=== PATIENT | female | born 1970 | race African-American/Black ===

== ENCOUNTER 2016-09-19 12:11 | Emergency (ER) | payer OTHER ==
[2016-09-19] MEDS ORDERED: Ondansetron ODT TAB* 4 MG PO ONE (13:20)
--- NOTE | 2016-09-19 13:21 | ED ---
Headache - HPI Summary HPI Summary: Pt here w/ change in vision while at work this morning. Started as a "fogginess " of both eyes. She stepped away from her computer thinking she may have simply been staring at the screen too long. However as she started walking down the hallway, noticed she had doubled vision and difficulty focusing. She sat down and rested for a few minutes w/o relief. She continues to have double vision and difficulty focusing in both eyes. Eyes are not itching, red, watery or painful. She is not photophobic. She has a CHRISTIAN developing as well. Denies numbness, tingling, weakness, slurred speech or confusion. She has h/o TBI. 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 She has neuropathy for which she takes gabapentin and amitriptyline for years w/o difficulty. Has insomnia as well - no recent exacerbation of stress or worsening of sleep habits. NOTE: pt had a brain MRI in 2014 for headaches which was normal. H/o CHRISTIAN's couple times a week but she just rides them out. No h/o visual change w/ these CHRISTIAN's. - History Of Current Complaint Chief Complaint: EDHeadache Stated Complaint: HEADACHE Time Seen by Provider: 09/19/16 13:01 Hx Obtained From: Patient - Allergies/Home Medications Allergies/Adverse Reactions: Allergies Allergy/AdvReac Type Severity Reaction Status Date / Time Latex Allergy See Comment Verified 11/19/15 09:19 PMH/Surg Hx/FS Hx/Imm Hx Previously Healthy: Yes Endocrine/Hematology History: Denies: Hx Diabetes, Hx Systemic Lupus Erythematosus, Hx Sickle Cell Disease , Hx Thyroid Disease, Hx Anemia, Hx Unexplained Bleeding, Hx Coagulopothy, Autoimmune Disease Cardiovascular History: Denies: Hx Aneurysm, Hx Cardiac Arrest, Hx Congenital Heart Disease, Hx Hypotension, Hx Hypertension, Hx Myocardial Infarction, Hx Pacemaker/ICD Respiratory History: Reports: Hx Asthma Sensory History: Denies: Hx Hearing Aid Opthamlomology History: Reports: Other Sensory Impairments - H/o LASIK surgery 13 years ago - has seen very well since Neurological History: Reports: Hx Headaches - MRI 2014 - NORMAL, Hx Peripheral Neuropathy - Lt peroneal n injury - takes gabapentin and amitriptyline Denies: Hx CVA Psychiatric History: Reports: Other Psychiatric Issues/Disorders - insomnia Denies: Hx Panic Disorder - Cancer History Hx Chemotherapy: No Hx Radiation Therapy: No - Surgical History Surgery Procedure, Year, and Place: RT LUMPECTOMY 10/23. TONSILECTOMY. LEFT LEG COMPARTMENT SYNDROME 2009. RIGHT SHOULDER,JUN 2015 Infectious Disease History: Denies: Traveled Outside the [place] in Last 30 Days - Family History Known Family History: Positive: Hypertension - mom - in older years - Social History Occupation: Employed Full-time Lives: With Family Alcohol Use: Rare Hx Substance Use: No Substance Use Type: Reports: None Hx Tobacco Use: No Smoking Status (MU): Never Smoked Tobacco Review of Systems Negative: Fever, Chills, Fatigue Eyes: Other - see HPI Negative: Dental Pain, Sore Throat, Ear Ache, Nasal Discharge Negative: Chest Pain Negative: Shortness Of Breath, Cough Negative: Abdominal Pain, Vomiting, Diarrhea, Nausea Positive: no symptoms reported Negative: Arthralgia, Myalgia Negative: Rash, Bruising Neurological: Other - see HPI Psychological: Normal - concerned All Other Systems Reviewed And Are Negative: Yes Physical Exam Triage Information Reviewed: Yes Vital Signs On Initial Exam: Initial Vitals Temp Pulse Resp BP Pulse Ox 99.1 F 88 16 141/97 98 09/19/16 12:13 09/19/16 12:13 09/19/16 12:13 09/19/16 12:13 09/19/16 12:13 Vital Signs Reviewed: Yes Appearance: Positive: Well-Appearing - although calm appears anxious, No Pain Distress, Well-Nourished Skin: Positive: Warm, Dry Head/Face: Positive: Normal Head/Face Inspection Eyes: Positive: Normal - funduscopic exam is w/o charlie evidence of hemorrhage, steamy corneas - no abrasions or irritation, EOMI, OLGA, Conjunctiva Clear. Negative: Conjunctiva Inflammed, Discharge ENT: Positive: Normal ENT inspection, Hearing grossly normal, Pharynx normal, TMs normal. Negative: Nasal congestion, Nasal drainage Dental: Negative: Dental Fracture @, Abscess @ Neck: Positive: Supple, Nontender, No Lymphadenopathy - no gross thyromegaly Respiratory/Lung Sounds: Positive: Clear to Auscultation, Breath Sounds Present Cardiovascular: Positive: Normal, RRR Abdomen Description: Positive: Nontender, Soft Bowel Sounds: Positive: Present Musculoskeletal: Positive: Normal, Strength/ROM Intact Neurological: Positive: Normal, Sensory/Motor Intact, Alert, Oriented to Person Place, Time, Reflexes Intact, Facial Symmetry, Speech Normal. Negative: CN Intact II-III - All are normal except pt is having double vision and difficulty w/ acuity - this persist despite unilateral exam; she is looking at the wall next to me and states she sees me; she is able to touch her nose but not my finger on either side w/ mutliple attempts; she is able to slide her heel down her diaz, Disoriented, Facial Droop, Slurred Speech, Finger to Nose, Pronator Drift Present Psychiatric: Positive: Normal - concerned Diagnostics - Vital Signs Vital Signs Temp Pulse Resp BP Pulse Ox 09/19/16 12:13 99.1 F 88 16 141/97 98 - Laboratory Result Diagrams: 09/19/16 14:05 Lab Statement: Any lab studies that have been ordered have been reviewed, and results considered in the medical decision making process. Re-Evaluation - Re-Evaluation First Eval Change: Unchanged - nausea improved some but CHRISTIAN is worse - will provide migraine cocktail Headache Course/Dx - Course Course Of Treatment: Pt presents w/ visual change and CHRISTIAN. W/ h/o CHRISTIAN's s/p TBI and normal labs/CT scan today as well as neurology consult, pt tx'd w/ migraine cocktail and d/c'd to f/u w/ PCP. Pt agrees w/ plan and will return to ED if danger s/sx present. - Diagnoses Provider Diagnoses: Migraine with aura - Physician Notifications Discussed Care Of Patient With: Dr. Sow. Dr. Agrawal - suspects migraine Discharge - Discharge Plan Condition: Stable Disposition: HOME Patient Education Materials: Migraine Headache (ED) Referrals: Sheila Singer PA [Primary Care Provider] - Additional Instructions: You appear to have a migraine headache with aura (which means visual change). It is important that you follow-up with your PCP to discuss better prevention as you reported having routine headaches. Call today or tomorrow to schedule your appointment. If these occur in the meantime, you may take ibuprofen with food as well as lots of fluids. An anti-nausea medication was sent to pharmacy for you - take this as needed. *If you develop weakness, numbness, confusion or slurred speech, return to ED
--- NOTE | 2016-09-19 13:22 | RAD ---
HISTORY: Headache, double vision COMPARISONS: MRI dated July 30, 2014 TECHNIQUE: Multiple contiguous axial CT scans were obtained of the head without intravenous contrast. FINDINGS: HEMORRHAGE/INFARCT: There is no hemorrhage or acute infarct. MASSES/SHIFT: There is no mass or shift. EXTRA-AXIAL SPACES: There are no extra-axial fluid collections. SULCI AND VENTRICLES: The sulci and ventricles are normal in size and position for the patient's stated age. CEREBRUM: There are no focal parenchymal abnormalities. BRAINSTEM: There are no focal parenchymal abnormalities. CEREBELLUM: There are no focal parenchymal abnormalities. VESSELS: The vessels are grossly normal. PARANASAL SINUSES: The paranasal sinuses are clear. ORBITS: The orbits are unremarkable. BONES AND SOFT TISSUE: No bone or soft tissue abnormalities are noted. OTHER: None IMPRESSION: NO ACUTE INTRACRANIAL PATHOLOGY.
[2016-09-19 14:33] LABS: Albumin 4.3 g/dL (3.2-5.2); BUN/Creatinine Ratio 23.1 (8-20); Calcium 9.2 mg/dL (8.6-10.3); EGFR African American 101.4 (>60); EGFR Non-African American 78.8 (>60); Globulin 3.3 g/dL (2-4); Total Bilirubin 0.5 mg/dL (0.2-1.0); Total Protein 7.6 g/dL (6.4-8.9)
[2016-09-19 14:34] LABS: Potassium 4.2 mmol/L (3.5-5.0)
[2016-09-19 14:48] LABS: TSH (Thyroid Stimulating Horm) 1.28 mcIU/mL (0.34-5.60)
[2016-09-19] MEDS ORDERED: NS 0.9% 1000 ML* 1,000 ML IV ONE (15:14)
[2016-09-19] MEDS ORDERED: Ketorolac INJ* 30 MG/ML 1 ML VIAL IV PUSH ONE (15:14)
[2016-09-19] MEDS ORDERED: diPHENhydraMINE IV* 50 MG/ML 1 ml VIAL (BENADRYL) IV ONE (15:15)
[2016-09-19] MEDS ORDERED: PROCHLORPERAZINE INJ 5 MG/ML 2 ML VIAL IV ONE (15:15)
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
[2016-09-19 16:42] VITALS: BP 114/71
[2016-09-19 16:45] LABS: Hematocrit 37 % (35-47); Mean Corpuscular HGB Conc 33 g/dl (31-36); Mean Corpuscular Hemoglobin 26 pg (27-31); Mean Corpuscular Volume 79 fL (80-97); Mean Platelet Volume 8 um3 (7.4-10.4); Red Blood Count 4.65 10^6/ul (4.0-5.4); Red Cell Distribution Width 14 % (10.5-15); White Blood Count 7.3 10^3/ul (3.5-10.8)
--- NOTE | 2016-09-20 18:13 | CONSULT ---
Consult Consult: Ms. Layton had been turned over to me at change of shift having received meds for migraine and awaiting there effect. She was improved and D/C'd in stable condition with a diagnosis of migraine.
== END 2016-09-19 18:36 | disposition home or self-care (01) ==
LOC: ED 12:11
DX: G43.109 Migraine with aura, not intractable, without status migrainosus (principal); R51 Headache
CPT/HCPCS: 36415; 70450; 80053; 84443; 85025; 96374; 96375; 99284; J0780; J1200; J1885